=== PATIENT | female | born 1990 | race African-American/Black ===

== ENCOUNTER 2016-11-09 00:56 | Emergency (ER) | payer SELFPAY ==
[~2016-11-09] VITALS: Ht 170.2 cm; Wt 65.0 kg
[2016-11-09 01:04] VITALS: Ht 170.2 cm; Wt 65.0 kg
[2016-11-09] MEDS ORDERED: SODIUM CHLORIDE 0.9% 1L IRRIG IRR STA (01:37)
[2016-11-09] MEDS ORDERED: TETRACAINE 0.5% 4 ML OPH BOTH EYES STA (02:05)
[2016-11-09] MEDS ORDERED: ONDANSETRON (ODT) 4 MG TAB ODT STA (02:29)
[2016-11-09] MEDS ORDERED: ERYTHROMYCIN 1 GM OPH OINT BOTH EYES ONE (02:30)
[2016-11-09] MEDS ORDERED: FLUORESCEIN STRIP BOTH EYES ONE (02:30)
[2016-11-09] MEDS ORDERED: HYDROCODONE/APAP (5/325) TAB PO ONE (02:30)
[2016-11-09] MEDS ORDERED: CPR3OO3.5 BOTH EYES (03:07)
[2016-11-09] MEDS ORDERED: HYDR-906 PO (03:09)
[2016-11-09 03:30] VITALS: BP 109/70; PULSE 63; RESP 16
--- NOTE | 2016-11-09 04:16 | ERD ---
ER Documentation Chief Complaint Date/Time DATE: 11/09/16 TIME: 04:12 Chief Complaint Placed bleach lint cleaner on contacts and burned her eyes HPI This patient is a 26-year-old female with no significant medical history presenting to the emergency department for bilateral eye pain after using the "clear care" contact solution on her contacts earlier today. The patient states she left it in for full 6 hours but she did not clean the contacts with regular saline after soaking them in the "clear care" solution. Patient had immediate eye pain after inserting contacts and she took them out as quickly as possible. She then reported severe bilateral eye pain and unable to open her eyes secondary to the pain. The patient has no visual acuity deficits. She declines discharge. The patient does wear contacts and glasses. She reports 10 out of 10 bilateral eye pain. She denies other symptoms at this time. ROS All systems reviewed and are negative except as per history of present illness. Medications Home Meds Active Scripts Hydrocodone/Acetaminophen ([place] 5-325 Tablet) 1 Each Tablet, 1 TAB PO Q6H Y for PAIN, #7 TAB Prov:DAMARIS ROJO PA-C 11/09/16 Ciprofloxacin Opht* (Ciloxan*) 0.3%-3.5 Opht Oint, 1 APPLIC BOTH EYES QID for 7 Days, #1 BOTTLE Prov:DAMARIS ROJO PA-C 11/09/16 Allergies Allergies: Coded Allergies: No Known Allergy (Unverified , 11/09/16) PMhx/Soc Medical and Surgical Hx: pt denies Medical Hx, pt denies Surgical Hx Hx Alcohol Use: Yes Hx Substance Use: No Hx Tobacco Use: No FmHx Noncontributory for chief complaint Physical Exam Vitals Vital Signs Date Time Temp Pulse Resp B/P Pulse Ox O2 Delivery O2 Flow Rate FiO2 11/09/16 03:30 63 16 109/70 99 Room Air 11/09/16 01:04 98.5 65 20 129/76 99 Physical Exam Const: The patient is in mild distress secondary to pain. The patient is unable to open her eyes due to pain. Head: Atraumatic Eyes: There is bilateral conjunctival injection. EOMs are intact bilaterally. No discharge noted ENT: Normal External Ears, Nose and Mouth. Neck: Full range of motion..~ No meningismus. Resp: Clear to auscultation bilaterally Cardio: Regular rate and rhythm, no murmurs Abd: Soft, non tender, non distended. Normal bowel sounds Skin: No petechiae or rashes Back: No midline or flank tenderness Ext: No cyanosis, or edema Neur: Awake and alert Psych: Normal Mood and Affect Results 24 hrs Current Medications Medications (Trade) Dose Ordered Sig/Samm Route PRN Reason Start Time Stop Time Status Last Admin Dose Admin Sodium Chloride (NS (Irrig)) 2,000 ml NOW STAT IRR 11/09/16 01:37 11/09/16 01:38 DC 11/09/16 01:42 Fluorescein Sodium (Btqml-U-Kixud) 1 strip ONCE ONCE BOTH EYES 11/09/16 02:30 11/09/16 02:31 DC Tetracaine HCl (Tetracaine 0.5% Steri-Unit Lois) 1 drop NOW STAT BOTH EYES 11/09/16 02:05 11/09/16 02:07 DC Acetaminophen/ Hydrocodone Bitart ([place] (5/325)) 1 tab ONCE ONCE PO 11/09/16 02:30 11/09/16 02:31 DC 11/09/16 02:45 Ondansetron HCl (Zofran Odt) 4 mg ONCE STAT ODT 11/09/16 02:29 11/09/16 02:31 DC 11/09/16 02:42 Erythromycin (Erythromycin Oph Oint) 1 applic ONCE ONCE BOTH EYES 11/09/16 02:30 11/09/16 02:31 DC 11/09/16 03:00 Procedures/MDM Eye Exam w/ Wood's lamp: Visual Acuity: Unable to obtain by nursing staff secondary to the patient unable to open her eyes due to pain. Visual Schwartz: Intact in all four quadrants bilaterally Lac ducts/glands: No swelling Lids w/ evertion: Normal, no foreign body Conj/Ass[place]: Injected conjunctival bilaterally, fluorescein uptake noted in bilateral corneas suspicious for corneal abrasions bilaterally. Anterior Chamber: Clear Retina exam: No obvious abnormality The patient is stable for discharge and outpatient management with a prescription for Cipro. The patient is advised to not wear her contacts for at least 1 week. The patient is to have very close follow-up with her primary care physician in the [facility]. If pain increases the patient was advised to go to [facility] emergency department for possible ophthalmology consultation. This case was discussed with Dr. Samuel Quigley, supervising ED physician who agreed with the discharge diagnosis and plan in the ED course. The patient understands her discharge plan and diagnosis. All questions and concerns were addressed. I have low suspicion for periorbital cellulitis, orbital cellulitis, deep corneal ulcer, dendritic ulcer, or other emergent conditions. Departure Diagnosis: Primary Impression: Corneal abrasion Additional Impressions: Conjunctivitis Eye pain Condition: Fair Patient Instructions: Understanding Red Eye: Causes, Conjunctivitis Caused by Infection, Corneal Abrasion Referrals: [facility] YOU HAVE RECEIVED A MEDICAL SCREENING EXAM AND THE RESULTS INDICATE THAT YOU DO NOT HAVE A CONDITION THAT REQUIRES URGENT TREATMENT IN THE EMERGENCY DEPARTMENT. FURTHER EVALUATION AND TREATMENT OF YOUR CONDITION CAN WAIT UNTIL YOU ARE SEEN IN YOUR DOCTORS OFFICE WITHIN THE NEXT 1-2 DAYS. IT IS YOUR RESPONSIBILITY TO MAKE AN APPOINTMENT FOR FOLOW-UP CARE. IF YOU HAVE A PRIMARY DOCTOR --you should call your primary doctor and schedule an appointment IF YOU DO NOT HAVE A PRIMARY DOCTOR YOU CAN CALL OUR PHYSICIAN REFERRAL HOTLINE AT IF YOU CAN NOT AFFORD TO SEE A PHYSICIAN YOU CAN CHOSE FROM THE FOLLOWING [facility] CLINICS [facility] [address] [facility]. [facility] [address] [facility] [address] [facility] [facility] [address] [facility]. [facility] [address] [facility] [facility]. [address] Additional Instructions: Do not wear contacts for at least 1 week. Follow-up with [facility] as soon as possible. Follow up with your PCP within the next 1-3 days for a more thorough evaluation and a possible referral to a specialist. Return the the emergency department immediately if symptoms worsen or change. If you have any questions regarding medications, ask your pharmacist or us before you leave. If any adverse reactions, occur while taking your medications, discontinue the treatment and return to the emergency department immediately. If any new or worsening symptoms, uncontrolled fevers, or other unexplained symptoms occur, return to the emergency department immediately. Take your medications as directed, and complete the entire course of treatment. DAMARIS ROJO PA-C November 09, 2016 04:16
== END 2016-11-09 03:32 | disposition home or self-care (01) ==
LOC: FTE 00:56
DX: S05.02XA Injury of conjunctiva and corneal abrasion without foreign body, left eye, initial encounter (principal); S05.01XA Injury of conjunctiva and corneal abrasion without foreign body, right eye, initial encounter; H10.9 Unspecified conjunctivitis; X58.XXXA Exposure to other specified factors, initial encounter; Y92.9 Unspecified place or not applicable
CPT/HCPCS: 99284

== ENCOUNTER 2017-10-24 20:55 | Emergency (ER) | END 2017-10-25 01:46 | disposition home or self-care (01) ==